=== PATIENT | male | born 1970 | race Two or more races ===

== ENCOUNTER 2019-05-31 22:04 | Emergency (ER) | payer MEDICAID ==
[~2019-05-31] VITALS: Ht 167.6 cm; Wt 94.0 kg
[2019-05-31] MEDS ORDERED: ATOR20TA65 MT (22:30)
[2019-05-31] MEDS ORDERED: WARF1TAB85 MT (22:30)
[2019-05-31] MEDS ORDERED: SODIUM CHLORIDE 0.9% 1,000 ML IV ONE (23:36)
[2019-05-31 23:55] LABS: BASOPHILS % 0.5 % (0.0-2.0); HEMATOCRIT. 40.7 % (42.0-52.0); HEMOGLOBIN. 13.6 g/dL (14.0-18.0); MEAN CORPUSCULAR HEMOGLOBIN 26.7 pg (28.0-32.0); MEAN CORPUSCULAR VOLUME 79.5 fL (80.0-94.0); MEAN PLATELET VOLUME 8.2 fl (7.4-10.4); MONOCYTES % 6.7 % (2.0-8.0); NEUTROPHILS % 50.8 % (40.0-76.0); PLATELET 269 x1000/uL (130-400); RED BLOOD CELL COUNT 5.11 mill/uL (4.7-6.1); RED CELL DISTRIBUTION WIDTH 13.7 % (11.6-14.6)
[2019-06-01 00:01] LABS: CHLORIDE 108 mEq/L (98-107)
[2019-06-01 00:02] LABS: INR 1.1; PROTHROMBIN TIME 10.8 sec (9.6-11.0)
[2019-06-01 04:40] VITALS: BP 101/62
== END 2019-06-01 04:45 | disposition home or self-care (01) ==
LOC: ER 22:37
DX: M54.12 Radiculopathy, cervical region (principal); Z86.73 Personal history of transient ischemic attack (TIA), and cerebral infarction without residual deficits; Z87.891 Personal history of nicotine dependence; Z88.8 Allergy status to other drugs, medicaments and biological substances; Z79.899 Other long term (current) drug therapy
CPT/HCPCS: 36415; 70450; 71045; 72125; 80053; 84484; 85025; 85610; 93005; 99284; J7030